=== PATIENT | female | born 1960 | race Caucasian/White ===

== ENCOUNTER 2024-03-06 23:27 | Inpatient (IN) | payer MEDICARE, MEDICAID ==
[~2024-03-06 23:27] MED LIST: Iopamidol-370 76% 500 ML MDV (1 ML CHARGE) ONE
[2024-03-07 00:55] LABS: ALT (SGPT) 25 U/L (8-55); Albumin 3.9 g/dL (3.4-4.8); Anion Gap 15 mmol/L (10-20); BUN (Urea Nitrogen) 21 mg/dL (9.8-20.1); Bilirubin, Total 0.4 mg/dL (0.2-1.2); Calc. Creatinine Clearance 0 mL/min (70-130); Calcium 9.7 mg/dL (7.8-10.44); Carbon Dioxide 23 mmol/L (23-31); Chloride 109 mmol/L (98-107); Estimated GFR 102; Globulin 4.4 g/dL (2.4-3.5); Glucose 131 mg/dL (80-115); Lipase 15 U/L (8-78); Protein, Total 8.3 g/dL (5.8-8.1); Sodium 142 mmol/L (136-145)
[2024-03-07 01:01] LABS: Troponin I Less than 0.010 ng/mL (< 0.028)
[2024-03-07 01:06] LABS: Hematocrit 43.7 % (36.0-47.0); Mean Corpuscular Hemoglobin 30.5 pg (27.0-31.0); Mean Corpuscular Volume 95.2 fL (78.0-98.0); Platelet Count 100 10x3/uL (130-400); RBC Distribution Width 13.9 % (11.5-14.5); Red Blood Cell (RBC) Count 4.59 mill/uL (4.20-5.40)
[2024-03-07 01:07] LABS: Band 12 % (5-11); Lymphocytes 2 % (21-51); Monocytes 7 % (0-10); Neutrophil 79 % (42-75); Platelet Adequacy Comment Platelets Decreased; RBC Morphology Within Normal Limits
[2024-03-07] MEDS ORDERED: Sodium Chloride 0.9% 100 ML ONE (01:58)
[2024-03-07] MEDS ORDERED: Piperacillin/Tazobactam 3.375 GM VIAL ONE (01:58)
[2024-03-07 03:24] LABS: AST (SGOT) 35 U/L (5-34); Alkaline Phosphatase 68 U/L (40-110)
[2024-03-07 05:48] LABS: Lactic Acid 2.67 mmol/L (0.5-2.2)
[2024-03-07 06:24] LABS: Bacteria/HPF 3+ HPF (None Seen); Bilirubin Negative (Negative); Blood, Urine 3+ (Negative); CAUTI Indications for Culture Alt mental st,lethar; Clarity Turbid (Clear); Glucose, Urine (Dipstick) Normal (Negative); Ketone, Urine Negative (Negative); Leukocyte 500 Leu/uL (Negative); Nitrite 2+ (Negative); Protein, Urine (Dipstick) 30 mg/dL (Neg-Trace); RBC/HPF Greater than 50 HPF (0-3); Squamous Epithelial 0-3 HPF (0-3); Urobilinogen Normal mg/dL (Less than 2); WBC/HPF Greater than 50 HPF (0-3)
[2024-03-07 06:25] LABS: Specific Gravity, Urine 1.058 (1.002-1.036)
[2024-03-07 06:26] LABS: Urine Culture Reflex Yes Yes
[2024-03-07] MEDS ORDERED: Ondansetron PF 4 MG/2 ML Vial IVP PRN (07:54)
[2024-03-07] MEDS ORDERED: Acetaminophen 650 MG Suppository PR PRN (07:54)
[2024-03-07] MEDS: Lactated Ringer's 1,000 ML IV SCH (10:16)
[2024-03-07] MEDS: Famotidine/PF 20 mg/2ml Vial SLOW IVP SCH (10:26)
[2024-03-07] MEDS: Senokot S 8.6-50 MG TAB PO SCH (10:26)
[2024-03-07] MEDS: Fleet Saline Enema 133 ML BOT PR SCH (10:26)
[2024-03-07] MEDS: Polyethylene Glycol 3350 17 GM Packet PO SCH (10:26)
[2024-03-07 10:30] VITALS: BMI 17.9
[2024-03-07 10:53] LABS: Actual Bicarbonate (HCO3v) 21.7 mEq/L (22-28); Base Excess -3.3 mEq/L (-2.0 to +3.0); Calcium, Ionized (venous) 1.12 mmol/L (1.16-1.32); Chloride (VBG) 109 mmol/L (98-106); Hematocrit-VBG 38 % (36.0-47.0); Hemoglobin (Hb) 12.9 g/dL (11.7-16.0); Potassium (VBG) 4.08 mmol/L (3.70-5.30); Sodium 143 mmol/L (133-146); pH (venous) 7.366 (7.32-7.43)
[2024-03-07] MEDS ORDERED: Bisacodyl 10 MG SUPP PR PRN (11:12)
[2024-03-07] MEDS ORDERED: Bisacodyl 5 MG TAB PO PRN (11:12)
[2024-03-07] MEDS: Piperacillin/Tazobactam 3.375 GM in Sodium Chloride 0.9% 100 ML IVPB SCH (13:26)
[2024-03-07] MEDS ORDERED: Piperacillin/Tazobactam 4.5 GM in Sodium Chloride 0.9% 100 ML IVPB SCH (14:00)
[2024-03-07] MEDS: Divalproex Sodium 125 mg Sprinkle Capsule PO SCH (20:40)
[2024-03-07] MEDS: Mirtazapine 15 MG TAB PO SCH (20:40)
[2024-03-07] MEDS: Acetaminophen 325 MG TAB PO PRN (20:53)
[2024-03-08 06:15] LABS: ALT (SGPT) 15 U/L (8-55); AST (SGOT) 20 U/L (5-34); Albumin 2.5 g/dL (3.4-4.8); Alkaline Phosphatase 46 U/L (40-110); Anion Gap 14 mmol/L (10-20); BUN (Urea Nitrogen) 14 mg/dL (9.8-20.1); Bilirubin, Total 0.2 mg/dL (0.2-1.2); Calc. Creatinine Clearance 84 mL/min (70-130); Calcium 8.1 mg/dL (7.8-10.44); Carbon Dioxide 21 mmol/L (23-31); Chloride 115 mmol/L (98-107); Estimated GFR 105; Globulin 2.7 g/dL (2.4-3.5); Glucose 72 mg/dL (80-115); Magnesium 1.9 mg/dL (1.6-2.6); Potassium 3.6 mmol/L (3.5-5.1); Protein, Total 5.2 g/dL (5.8-8.1); Sodium 146 mmol/L (136-145)
[2024-03-08] MEDS: Dextrose 5% in Water 1,000 ML IV SCH (08:35)
[2024-03-08] MEDS: Citalopram 10 MG TAB PO SCH (08:37)
[2024-03-08] MEDS: Loratadine 10 MG TAB PO SCH (08:37)
[2024-03-08] MEDS: Polyethylene Glycol 3350 17 GM Packet PO SCH (08:37)
[2024-03-08 08:54] VITALS: BMI 17.9
[2024-03-08] MEDS ORDERED: Enoxaparin 40 MG (0.4 mL) SYRINGE SC SCH (09:00)
[2024-03-08 09:29] LABS: #Basophils 0.03 10x3/uL (0.0-0.2); %Basophils 0.7 % (0.0-1.0); %Eosinophils 7.2 % (0.0-10.0); %Lymphocytes 32.8 % (21.0-51.0); %Monocytes 17.2 % (0.0-10.0); %Neutrophils 41.9 % (42.0-75.0); Hematocrit 32.7 % (36.0-47.0); Hemoglobin 10.1 g/dL (12.0-16.0); Mean Corpuscular HGB CONC 30.9 g/dL (32.0-36.0); Mean Corpuscular Hemoglobin 30.9 pg (27.0-31.0); Platelet Count 53 10x3/uL (130-400); RBC Distribution Width 14.1 % (11.5-14.5); Red Blood Cell (RBC) Count 3.27 mill/uL (4.20-5.40)
[2024-03-08 12:16] LABS: Band 8 % (5-11); Burr Cells SLIGHT = 2-5 cells HPF (0-1); Eosinophils 6 % (0-10); Large Platelets 17.6 % (0-5); Lymphocytes 27 % (21-51); Monocytes 9 % (0-10); Neutrophil 47 % (42-75); Platelet Adequacy Comment Platelets Decreased; Reactive Lymphocytes 1 % (0-10)
[2024-03-09 06:20] LABS: #Basophils 0.03 10x3/uL (0.0-0.2); %Basophils 0.5 % (0.0-1.0); %Eosinophils 7.9 % (0.0-10.0); %Lymphocytes 31.6 % (21.0-51.0); %Monocytes 15.7 % (0.0-10.0); %Neutrophils 44.1 % (42.0-75.0); Hematocrit 33.9 % (36.0-47.0); Hemoglobin 10.6 g/dL (12.0-16.0); Mean Corpuscular HGB CONC 31.3 g/dL (32.0-36.0); Mean Corpuscular Hemoglobin 30.9 pg (27.0-31.0); Mean Corpuscular Volume 98.8 fL (78.0-98.0); Mean Platelet Volume 15.2 fL (7.4-10.4); Platelet Count 60 10x3/uL (130-400); Red Blood Cell (RBC) Count 3.43 mill/uL (4.20-5.40)
[2024-03-09 06:37] LABS: Anion Gap 13 mmol/L (10-20); BUN (Urea Nitrogen) 13 mg/dL (9.8-20.1); Calc. Creatinine Clearance 78 mL/min (70-130); Calcium 8.9 mg/dL (7.8-10.44); Carbon Dioxide 24 mmol/L (23-31); Chloride 110 mmol/L (98-107); Estimated GFR 103; Glucose 64 mg/dL (80-115); Magnesium 2.1 mg/dL (1.6-2.6); Potassium 3.6 mmol/L (3.5-5.1); Sodium 143 mmol/L (136-145)
[2024-03-09 12:39] VITALS: TEMP 98.1
[2024-03-09 16:27] VITALS: BP 124/80
== END 2024-03-09 17:20 | DRG 690 ==
LOC: ERS 23:27 → T4-A 03-07 09:08
PROVIDERS: ADMIT Family Medicine; ATTEND Internal Medicine
DX: N39.0 Urinary tract infection, site not specified (principal); E87.0 Hyperosmolality and hypernatremia; F03.94 Unspecified dementia, unspecified severity, with anxiety; K59.00 Constipation, unspecified; B96.89 Other specified bacterial agents as the cause of diseases classified elsewhere; D69.6 Thrombocytopenia, unspecified; R06.82 Tachypnea, not elsewhere classified; Z88.8 Allergy status to other drugs, medicaments and biological substances
CPT/HCPCS: 36415; 36416; 71045; 74177; 76705; 80048; 80053; 81001; 82805; 83605; 83690; 83735; 84484; 85025; 86850; 86900; 86901; 87040; 87077; 87086; 87186; 93005; 96361; 96374; J2543; J3490; J7070; J7120; Q9967